=== PATIENT | female | born 1955 | race Hispanic/Latino ===

== ENCOUNTER 2017-09-11 07:44 | Day surgery (SDC) | payer BC ==
[2017-09-11] MEDS ORDERED: NACL 0.9% 1000 ML 1,000 ML IV SCH (10:00)
[2017-09-11] MEDS ORDERED: DIPRIVAN 10 MG/ML IV ONE ×3 (10:13→10:47)
--- NOTE | 2017-09-11 10:13 | Anesthesia Consultation ---
Anesthesia Consult and Med Hx Date of service: 09/11/17 - Airway Anesthetic Teeth Evaluation: Edentulous ROM Head & Neck: Adequate Mental/Hyoid Distance: Adequate Mallampati Class: Class III Intubation Access Assessment: Possibly Difficult - Pulmonary Exam CTA: Yes - Cardiac Exam Cardiac Exam: RRR - Pre-Operative Health Status ASA Pre-Surgery Classification: ASA3 Proposed Anesthetic Plan: MAC - Pulmonary Hx Smoking: Yes Hx Asthma: No Hx Sleep Apnea: No - Cardiovascular System Hx Hypertension: Yes Hx Heart Attack/AMI: No Hx Heart Murmur: Yes - Central Nervous System CVA: No Hx Psychiatric Problems: No - Gastrointestinal Hx Gastroesophageal Reflux Disease: No - Endocrine Hx Liver Disease: Yes (H/o hepatitis B) Hx Insulin Dependent Diabetes: Yes - Hematic Hx Anemia: Yes (IN THE PAST - OK NOW) - Other Systems Hx Alcohol Use: No Hx Substance Use: No Hx Cancer: No Hx Obesity: Yes
--- NOTE | 2017-09-11 10:14 | Anesthesia Day of Surgery ---
Anesthesia Day of Surgery - Day of Surgery Patient Examined: Yes Patient H&P Reviewed: Yes Patient is NPO: Yes
[2017-09-11] MEDS ORDERED: WATER FOR IRRIG STERILE IR ONE (10:16)
--- NOTE | 2017-09-11 11:03 | Short Stay Summary ---
Short Stay Documentation Date of service: 09/11/17 - History H&P: obtained from office - Allergies and Medications Current Medications: Allergies No Known Allergies Allergy (Verified 09/11/17 09:40) Home Medications Medication Instructions Recorded Confirmed Last Taken Type Aspirin EC [Aspirin Enteric Coated 81 mg PO QDAY 06/23/14 09/11/17 09/10/17 History TAB] Atorvastatin [Lipitor] 40 mg PO QHS 06/23/14 09/11/17 09/10/17 History Cholecalciferol (Vitamin D3) 300 unit PO BID 06/23/14 09/11/17 09/02/17 History [Vitamin D] Iron 65 mg PO QDAY 06/23/14 09/11/17 09/02/17 History Metformin HCl [Fortamet] 1,000 mg PO BID 06/23/14 09/11/17 09/10/17 History Multivitamin [Multi Vitamin Daily] 1 each PO DAILY 06/23/14 09/11/17 09/10/17 History Verapamil HCl 40 mg PO DAILY 06/23/14 09/11/17 09/10/17 18:25 History Empagliflozin (Nf) [Jardiance (Nf)] 10 mg PO QDAY 09/11/17 09/11/17 09/10/17 History Insulin Aspart [NovoLOG Flexpen] 20 units SQ BID 09/11/17 09/11/17 09/10/17 History Insulin Degludec [Tresiba 60 units SQ QHS 09/11/17 09/11/17 09/10/17 18:30 History Flextouch U-100] 60 UNITS Irbesartan [Avapro] 300 mg PO QDAY 09/11/17 09/11/17 09/10/17 History Active Medications Sodium Chloride (Nacl 0.9% 1000 Ml) 1,000 mls @ 50 mls/hr IV DIRECT KARLY Last Admin: 09/11/17 09:55 Dose: 50 mls/hr - Brief post op/procedure progress note Date of procedure: 09/11/17 Findings: see intake form Estimated blood loss: none Pathology: list (2 ascending colon polyps and 2 descending polyps) Specimen disposition: to lab Condition: stable - Disposition Condition at discharge: Good Disposition: DC-01 TO HOME OR SELFCARE - Discharge Diagnoses (1) Blood in stool Status: Acute Short Stay Discharge Plan Activity: other (no driving for 24 hours) Weight Bearing Status: Weight Bear as Tolerated Diet: diabetic Follow up with: KIRSTEN GALLEGOS MD [Primary Care Provider] - 7 Days
--- NOTE | 2017-09-11 11:06 | Operative Report ---
Operative Report Operative Report: Date of procedure: 09/11/2017 Preprocedure diagnosis: Hemoccult-positive stool, positive FIT test Post procedure diagnosis: 2 small ascending colon polyps and 2 small descending colon polyps. Few diverticula. Arteriovenous malformation in ascending colon. Procedure: Colonoscopy to the cecum with cold and hot snare polypectomies as below. Endoscopist: Dr. Dumont Anesthesia: Monitored anesthesia care per anesthesia department Estimated blood loss: 0 Medications: Monitored anesthesia care. See separate report by anesthesia for details. After careful discussion of the nature and purpose of the procedure as well as details of the technique risks benefits and alternatives the patient gave consent. Please see recent history and physical from the office. The patient was placed in the left lateral decubitus position and medicated per anesthesia. A rectal exam was performed sphincter tone was normal there were no masses palpable. The [employer] 570 scope was passed transanally and advanced under continuous direct vision without difficulty to the cecum. The colon was well prepared. The cecum was normal. The ascending colon revealed a small AVM and 2 small polyps 5-6 mm in size. Polyps were sessile and both were removed with cold snare resection and retrieved by suction. The transverse colon was normal. The descending colon revealed 2 polyps from 7-9 mm in size. Both were removed with hot snare polypectomies and retrieved by suction. Few scattered diverticula were noted in the sigmoid colon. The rectum was normal on forward and retroflexed views. The procedure was well-tolerated overall and the patient was observed in recovery. Conclusions: 4 polyps, 2 in the ascending colon and 2 in the descending colon. Few diverticula. Angiodysplasia of the ascending colon, one lesion.. Plan: Await pathology. Repeat colonoscopy in 3 years. Signed electronically: Michele Dumont M.D.
[2017-09-11 11:24] VITALS: BP 137/82
== END 2017-09-11 07:45 | disposition home or self-care (01) ==
LOC: GIO 07:44
PROVIDERS: ATTEND Internal Medicine Gastroenterology
DX: D12.2 Benign neoplasm of ascending colon (principal); D12.4 Benign neoplasm of descending colon; K57.30 Diverticulosis of large intestine without perforation or abscess without bleeding; K55.20 Angiodysplasia of colon without hemorrhage; E11.9 Type 2 diabetes mellitus without complications; I10 Essential (primary) hypertension; F17.200 Nicotine dependence, unspecified, uncomplicated; E66.9 Obesity, unspecified; Z68.41 Body mass index [BMI] 40.0-44.9, adult; Z79.4 Long term (current) use of insulin; Z79.82 Long term (current) use of aspirin; Z86.19 Personal history of other infectious and parasitic diseases; Z98.890 Other specified postprocedural states; Z90.710 Acquired absence of both cervix and uterus
CPT/HCPCS: 45385; 82962; 88305; J2704; J7030